=== PATIENT | female | born 1995 | race American Indian/Alaskan Native ===

== ENCOUNTER 2017-11-04 02:13 | Emergency (ER) | payer SELFPAY ==
[2017-11-04] MEDS ORDERED: Ondansetron 4 MG Tab.DIS PO ONE (02:54)
--- NOTE | 2017-11-04 02:56 | EDM.PDOC ---
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 The patient states that she did not "want to kill herself" but that she wanted to go to sleep and to get rid of her mental pain. When challenged she states that she understands this was an overdose but again reiterates that she doesn't think that she wanted to kill herself but that she sometimes will have these erratic behaviors attributable to her anxiety and depression. The patient also has a history of cutting in the past but has not cut in the last several years and states to me that she did have all of her old scars removed and did cut this evening with superficial cuts to her left forearm. The patient tells me her tetanus shot is up-to-date she is not and she has not had any other systemic complaints of fever chills chest pain shortness of breath abdominal pain nausea vomiting or fever. The patient says that she got the prescription for the Celexa from her old physician back in [place] and according to the bottle it was prescribed on March 23 of this year for total number of 30 tablets. She says that in the past she has only taken this when she needs it for sleep and that is why it was prescribed for her. When challenged again about washed extremities evening she states that she is concerned about her well-being and although she does not feel she was to herself now she feels that those thoughts may have been present when she took these pills at midnight and she's concerned that it may happen again as this is in her history. She says that she cut her forearm just to distract her from her "mental pain" and that it was not intent to harm herself. She denies any coingestions and has nausea here but no vomiting. Patient text a friend who felt that she should be evaluated which is why she is here in the department. The patient denies any recent alcohol use and does not use drugs but does smoke cigarettes. Review of systems: As per history of present illness and below otherwise all systems reviewed and negative. Past medical history: As per history of present illness and as reviewed below otherwise noncontributory. Surgical history: As per history of present illness and as reviewed below otherwise noncontributory. Social history: No reported history of drug or alcohol abuse. Family history: As per history of present illness and as reviewed below otherwise noncontributory. Physical exam: Gen.: Well-developed well-nourished female who is nontoxic and speaking clearly and easily in the ED. Vital signs of been reviewed by me It is noted that the patient and conversation has great insight into her prior history of her disease as well as her concerns regarding going forward. She is speaking clearly and easily and is quite open with my direct questioning. HEENT: Atraumatic, normocephalic, pupils reactive, negative for conjunctival pallor or scleral icterus, mucous membranes moist, throat clear, neck supple, nontender, trachea midline. Lungs: Clear to auscultation, breath sounds equal bilaterally, chest nontender. Heart: S1S2, regular rate and rhythm no overt murmurs Abdomen: Soft, nondistended, nontender. Negative for masses or hepatosplenomegaly. NABS Pelvis: Deferred Genitourinary: Deferred. Rectal: Deferred. Extremities: Atraumatic and full range of motion of all extremities with the exception of the volar surface of the left forearm where there are some very superficial multiple horizontal lacerations with some crusted blood and nothing of any depth with no surrounding tenderness erythema and no neurosensory changes in the compartment or distally. The legs are, negative for cords or calf pain. Neurovascular unremarkable. Neuro: Awake, alert, oriented. Cranial nerves II through XII unremarkable. Cerebellum unremarkable. Motor and sensory unremarkable throughout. Exam nonfocal. Diagnostics: CBC CMP Tylenol and aspirin levels alcohol TSH UA UDS urine EKG Therapeutics: [place] Poison control was contacted by nursing regarding this drug ingestion and they recommended an EKG and states that she could have agitation seizures and peak effect is at 4 hours. As this patient had the ingestion 3 hours ago we will continue to monitor into her workup and plan for psychiatric transfer. Patient is been resting comfortably in the ear and exhibits no signs of agitation or distress. We will Continue to monitor There are no available appropriate beds at [facility] in [facility] or [facility] in [place]. [id number]: Case was discussed at length with the psychiatrist, Dr Carrillo, at [facility] in [place], as this is the closest institution that has an available bed. He accepts the patient for transfer. I discussed all these phone conversations and this transfer with the patient and she is still agreeable and wants help. She did initially state that she was unsure about wanting to go to [place] but after further discussion she is agreeable. I performed a repeat EKG just to document that there are no EKG findings at her peak time post ingestion. She currently has been resting comfortably in the ED without any signs of agitation distress anxiety and has been nothing but cooperative here. Impression: Intentional overdose with mood disorder with depressive and anxiety features Definitive disposition and diagnosis as appropriate pending reevaluation and review of above. left hand Pain Score (Numeric/FACES): 6 - Related Data Allergies Allergy/AdvReac Type Severity Reaction Status Date / Time nickel Allergy Rash Verified 11/04/17 02:30 Home Meds: Home Meds Control Pills 1 tab PO DAILY 11/04/17 [History] Citalopram Hydrobromide [Celexa] 10 mg PO DAILY 11/04/17 [History] Past Medical History HEENT History: Reports: None Cardiovascular History: Reports: None Respiratory History: Reports: None Gastrointestinal History: Reports: None Genitourinary History: Reports: None [employer]MENT History: Reports: None Musculoskeletal History: Reports: None Neurological History: Reports: None Psychiatric History: Reports: Anxiety, Depression, Psych Hospitalization(s) Endocrine/Metabolic History: Reports: None Hematologic History: Reports: None Immunologic History: Reports: None Oncologic (Cancer) History: Reports: None Dermatologic History: Reports: None - Infectious Disease History Infectious Disease History: Reports: None - Past Surgical History Head Surgeries/Procedures: Reports: None Social & Family History - Family History Family Medical History: Noncontributory - Tobacco Use Smoking Status *Q: Current Every Day Smoker Years of Tobacco use: 2 Packs/Tins Daily: 0.2 - Caffeine Use Caffeine Use: Reports: Tea - Recreational Drug Use Recreational Drug Use: No ED ROS GENERAL - Review of Systems Review Of Systems: ROS reveals no pertinent complaints other than HPI. ED EXAM, GENERAL - Physical Exam Exam: See Below (See dictation) Course - Vital Signs Last Recorded V/S: Last Vital Signs Temp 36.6 C 11/04/17 04:00 Pulse 68 11/04/17 04:00 Resp 18 11/04/17 04:00 BP 111/71 11/04/17 04:00 Pulse Ox 98 11/04/17 04:00 - Orders/Labs/Meds Orders: Active Orders 24 hr Category Date Time Status Communication Order [RC] STAT Care 11/04/17 02:47 Active EKG Documentation Completion [RC] STAT Care 11/04/17 03:08 Active EKG Documentation Completion [RC] STAT Care 11/04/17 03:08 Inactive Labs: Laboratory Tests 11/04/17 11/04/17 11/04/17 Range/Units 02:54 02:54 03:30 WBC 7.70 (4.0-11.0) K/uL RBC 4.39 (4.30-5.90) M/uL Hgb 13.8 (12.0-16.0) g/dL Hct 42.2 (36.0-46.0) % MCV 96.1 (80.0-98.0) fL MCH 31.4 (27.0-32.0) pg MCHC 32.7 (31.0-37.0) g/dL RDW Std Deviation 46.2 (28.0-62.0) fl RDW Coeff of David 13 (11.0-15.0) % Plt Count 313 (150-400) K/uL MPV 9.50 (7.40-12.00) fL Neut % (Auto) 64.7 (48.0-80.0) % Lymph % (Auto) 28.1 (16.0-40.0) % [place] % (Auto) 6.1 (0.0-15.0) % Eos % (Auto) 1.0 (0.0-7.0) % Baso % (Auto) 0.1 (0.0-1.5) % Neut # (Auto) 5.0 (1.4-5.7) K/uL Lymph # (Auto) 2.2 (0.6-2.4) K/uL [place] # (Auto) 0.5 (0.0-0.8) K/uL Eos # (Auto) 0.1 (0.0-0.7) K/uL Baso # (Auto) 0.0 (0.0-0.1) K/uL Nucleated RBC % 0.0 /100WBC Nucleated RBCs # 0 K/uL Sodium 144 (136-146) mmol/L Potassium 4.0 (3.5-5.1) mmol/L Chloride 112 H (98-110) mmol/L Carbon Dioxide 23 (21-31) mmol/L BUN 12 (6.0-23.0) mg/dL Creatinine 0.8 (0.6-1.5) mg/dL Est Cr Clr Drug Dosing 113.16 mL/min Estimated GFR (MDRD) > 60.0 ml/min Glucose 99 (60-110) mg/dL Calcium 9.0 (8.8-10.8) mg/dL Total Bilirubin 0.2 (0.1-1.5) mg/dL AST 16 (5-40) IU/L ALT 15 (8-54) IU/L Alkaline Phosphatase 38 L (40-150) Total Protein 7.1 (6.0-8.0) g/dL Albumin 4.0 (3.5-5.0) g/dL Globulin 3.1 (2.0-3.5) g/dL Albumin/Globulin Ratio 1.3 (1.3-2.8) TSH 3rd Generation 1.92 (0.47-5.0) uIU/mL Urine Color Urine Appearance Urine pH (5.0-8.0) Ur Specific [place] (1.001-1.035) Urine Protein (NEGATIVE) mg/dL Urine Glucose (UA) (NEGATIVE) mg/dL Urine Ketones (NEGATIVE) mg/dL Urine Occult Blood (NEGATIVE) Urine Nitrite (NEGATIVE) Urine Bilirubin (NEGATIVE) Urine Urobilinogen (<2.0) EU/dL Ur Leukocyte Esterase (NEGATIVE) Urine RBC (0-2/HPF) Urine WBC (0-5/HPF) Ur Epithelial Cells (NONE-FEW) Urine Bacteria (NEGATIVE) Urine HCG, Qual (NEGATIVE) Salicylates < 5.0 (0-20) mg/dL Urine Opiates Screen NEGATIVE (NEGATIVE) Ur Oxycodone Screen NEGATIVE (NEGATIVE) Urine Methadone Screen NEGATIVE (NEGATIVE) Acetaminophen < 3.0 ug/mL Ur Barbiturates Screen NEGATIVE (NEGATIVE) Ur Phencyclidine Scrn NEGATIVE (NEGATIVE) Ur Amphetamine Screen NEGATIVE (NEGATIVE) U Methamphetamines Scrn NEGATIVE (NEGATIVE) U Benzodiazepines Scrn NEGATIVE (NEGATIVE) U Cocaine Metab Screen NEGATIVE (NEGATIVE) U Marijuana (THC) Screen NEGATIVE (NEGATIVE) Ethyl Alcohol 101.8 mg/dL 11/04/17 11/04/17 Range/Units 03:30 03:30 WBC (4.0-11.0) K/uL RBC (4.30-5.90) M/uL Hgb (12.0-16.0) g/dL Hct (36.0-46.0) % MCV (80.0-98.0) fL MCH (27.0-32.0) pg MCHC (31.0-37.0) g/dL RDW Std Deviation (28.0-62.0) fl RDW Coeff of David (11.0-15.0) % Plt Count (150-400) K/uL MPV (7.40-12.00) fL Neut % (Auto) (48.0-80.0) % Lymph % (Auto) (16.0-40.0) % [place] % (Auto) (0.0-15.0) % Eos % (Auto) (0.0-7.0) % Baso % (Auto) (0.0-1.5) % Neut # (Auto) (1.4-5.7) K/uL Lymph # (Auto) (0.6-2.4) K/uL [place] # (Auto) (0.0-0.8) K/uL Eos # (Auto) (0.0-0.7) K/uL Baso # (Auto) (0.0-0.1) K/uL Nucleated RBC % /100WBC Nucleated RBCs # K/uL Sodium (136-146) mmol/L Potassium (3.5-5.1) mmol/L Chloride (98-110) mmol/L Carbon Dioxide (21-31) mmol/L BUN (6.0-23.0) mg/dL Creatinine (0.6-1.5) mg/dL Est Cr Clr Drug Dosing mL/min Estimated GFR (MDRD) ml/min Glucose (60-110) mg/dL Calcium (8.8-10.8) mg/dL Total Bilirubin (0.1-1.5) mg/dL AST (5-40) IU/L ALT (8-54) IU/L Alkaline Phosphatase (40-150) Total Protein (6.0-8.0) g/dL Albumin (3.5-5.0) g/dL Globulin (2.0-3.5) g/dL Albumin/Globulin Ratio (1.3-2.8) TSH 3rd Generation (0.47-5.0) uIU/mL Urine Color YELLOW Urine Appearance HAZY Urine pH 5.5 (5.0-8.0) Ur Specific [place] >= 1.030 (1.001-1.035) Urine Protein NEGATIVE (NEGATIVE) mg/dL Urine Glucose (UA) NEGATIVE (NEGATIVE) mg/dL Urine Ketones NEGATIVE (NEGATIVE) mg/dL Urine Occult Blood LARGE H (NEGATIVE) Urine Nitrite NEGATIVE (NEGATIVE) Urine Bilirubin NEGATIVE (NEGATIVE) Urine Urobilinogen 0.2 (<2.0) EU/dL Ur Leukocyte Esterase NEGATIVE (NEGATIVE) Urine RBC 3-5 (0-2/HPF) Urine WBC 1-2 (0-5/HPF) Ur Epithelial Cells FEW (NONE-FEW) Urine Bacteria FEW (NEGATIVE) Urine HCG, Qual NEGATIVE (NEGATIVE) Salicylates (0-20) mg/dL Urine Opiates Screen (NEGATIVE) Ur Oxycodone Screen (NEGATIVE) Urine Methadone Screen (NEGATIVE) Acetaminophen ug/mL Ur Barbiturates Screen (NEGATIVE) Ur Phencyclidine Scrn (NEGATIVE) Ur Amphetamine Screen (NEGATIVE) U Methamphetamines Scrn (NEGATIVE) U Benzodiazepines Scrn (NEGATIVE) U Cocaine Metab Screen (NEGATIVE) U Marijuana (THC) Screen (NEGATIVE) Ethyl Alcohol mg/dL Meds: Medications Discontinued Medications Generic Name Dose Route Start Last Admin Trade Name Freq PRN Reason Stop Dose Admin Ondansetron HCl 4 mg 11/04/17 02:54 11/04/17 03:02 Zofran Odt PO 11/04/17 02:55 4 mg ONETIME ONE Administration Departure - Departure Time of Disposition: 04:21 Disposition: DC/Tfer to Psych Hosp/Unit 65 Condition: Good Clinical Impression: Intentional overdose of drug in tablet form - Discharge Information Referrals: PCP,None [Primary Care Provider] - Forms: ED Department Discharge - My Orders Last 24 Hours: My Active Orders 11/04/17 02:47 Communication Order [RC] STAT 11/04/17 03:08 EKG Documentation Completion [RC] STAT EKG Documentation Completion [RC] STAT - Assessment/Plan Last 24 Hours: My Active Orders 11/04/17 02:47 Communication Order [RC] STAT 11/04/17 03:08 EKG Documentation Completion [RC] STAT EKG Documentation Completion [RC] STAT
[2017-11-04 03:19] LABS: ACETAMINOPHEN < 3.0 ug/mL; CHLORIDE,CL 112 mmol/L (98-110); SODIUM,NA 144 mmol/L (136-146)
== END 2017-11-04 09:07 ==
LOC: MW.ED 02:13
DX: T43.222A Poisoning by selective serotonin reuptake inhibitors, intentional self-harm, initial encounter (principal); S51.812A Laceration without foreign body of left forearm, initial encounter; F41.9 Anxiety disorder, unspecified; F32.9 Major depressive disorder, single episode, unspecified; F17.210 Nicotine dependence, cigarettes, uncomplicated; Z79.899 Other long term (current) drug therapy; X78.9XXA Intentional self-harm by unspecified sharp object, initial encounter
CPT/HCPCS: 36415; 80053; 80305; 81001; 81025; 84443; 85025; 93005; 99285; A9270; G0480

== ENCOUNTER 2018-08-02 23:10 | Emergency (ER) | payer OTHER ==
[2018-08-02] MEDS ORDERED: Acetaminophen/HYDROcodone 325-10 MG Tab PO ONE (23:21)
[2018-08-02] MEDS ORDERED: Ketorolac 60 MG/2 ML SDV IM ONE (23:21)
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
== END 2018-08-02 23:50 | disposition home or self-care (01) ==
LOC: MW.ED 23:10
DX: H73.23 Unspecified myringitis, bilateral (principal); F41.9 Anxiety disorder, unspecified; F32.9 Major depressive disorder, single episode, unspecified; Z79.899 Other long term (current) drug therapy; W13.1XXA Fall from, out of or through bridge, initial encounter
CPT/HCPCS: 96372; 99282; A9270; J1885

== ENCOUNTER 2022-01-19 19:34 | Emergency (ER) | payer OTHER ==
[2022-01-19] MEDS ORDERED: Sodium Chloride 0.9% 1,000 ML IV ONE (20:15)
[2022-01-19] MEDS ORDERED: Ondansetron 4 MG/2 ML SDV IVPUSH ONE (20:15)
[2022-01-19] MEDS ORDERED: Morphine 4 MG/ML VIAL IVPUSH ONE (20:16)
[2022-01-19 21:06] LABS: BLOOD UREA NITROGEN,BUN 15 mg/dL (7.0-18.0); CHLORIDE,CL 103 mmol/L (98-107); GLUCOSE RANDOM 104 mg/dL (74-106); LIPASE 114 U/L (73-393); POTASSIUM,K 3.9 mmol/L (3.5-5.1); SODIUM,NA 139 mmol/L (136-145)
[2022-01-19] MEDS ORDERED: Iopamidol 755 MG/ML 500 ML Multipack Bottle IVPUSH ONE (21:17)
[2022-01-19] MEDS ORDERED: Promethazine 25 MG/ML SDV IM ONE (22:27)
== END 2022-01-19 23:43 | disposition home or self-care (01) ==
LOC: MW.ED 19:34
DX: R10.33 Periumbilical pain (principal); G89.29 Other chronic pain; Z91.048 Other nonmedicinal substance allergy status; Z20.822 Contact with and (suspected) exposure to COVID-19
CPT/HCPCS: 36415; 74177; 80053; 81003; 81025; 83690; 85025; 87635; 96372; 96374; 96375; 99284; J2270; J2405; J2550; J7030; Q9967; U0002

== ENCOUNTER 2023-03-01 11:33 | Emergency (ER) | payer OTHER | END 2023-03-01 12:45 | disposition home or self-care (01) | LOC: MW.ED 11:33 | DX: J35.8 Other chronic diseases of tonsils and adenoids (principal) | CPT/HCPCS: 36415; 86308; 99283 ==

== ENCOUNTER 2024-01-19 08:11 | Emergency (ER) | payer SELFPAY ==
[2024-01-19] MEDS: Sodium Chloride 0.9% 1,000 ML IV ONE ×2 (08:56→10:10)
[2024-01-19] MEDS: Prochlorperazine 10 MG/2 ML SDV IVPUSH ONE ×2 (08:57→10:09)
[2024-01-19] MEDS: Sodium Chloride 0.9% 10 ML Syringe FLUSH PRN (08:57)
[2024-01-19] MEDS: Sodium Chloride 0.9% 2.5 ML Syringe FLUSH PRN (08:57)
[2024-01-19 08:58] LABS: BASOPHILS ABSOLUTE AUTO 0.04 K/uL (0.00-0.20); BASOPHILS PERCENT AUTO 0.2 % (0.0-1.0); EOSINOPHILS ABSOLUTE AUTO 0.18 K/uL (0.00-0.45); HEMATOCRIT 44.3 % (37.0-47.0); HEMOGLOBIN 14.8 g/dL (12.0-16.0); IMMATURE GRAN PERCENT AUTO 0.6 % (0.0-0.4); LYMPHOCYTES ABSOLUTE AUTO 1.31 K/uL (1.00-4.80); LYMPHOCYTES PERCENT AUTO 7.5 % (24.0-44.0); MEAN CORPUSCULAR HEMOGLOBIN 31.8 pg (28.0-32.0); MEAN CORPUSCULAR HGB CONC 33.4 g/dL (32.0-36.0); MEAN CORPUSCULAR VOLUME 95.1 fL (83.0-99.0); MEAN PLATELET VOLUME 8.7 fL (9.4-12.3); MONOCYTES ABSOLUTE AUTO 0.83 K/uL (0.00-0.80); MONOCYTES PERCENT AUTO 4.8 % (0.0-8.0); NEUTROPHILS ABSOLUTE AUTO 15.01 K/uL (1.80-7.70); NEUTROPHILS PERCENT AUTO 85.9 % (41.0-71.0); PLATELET COUNT,PLT 334 K/uL (150-400); RED BLOOD CELL COUNT 4.66 M/uL (4.10-5.30); WHITE BLOOD CELL COUNT,WBC 17.47 K/uL (3.9-11.3)
[2024-01-19 09:18] LABS: CORONAVIRUS COVID-19 NAA NEGATIVE (NEGATIVE); INFLUENZA A NAA NEGATIVE (NEGATIVE); INFLUENZA B NAA NEGATIVE (NEGATIVE)
[2024-01-19 09:23] LABS: A/G RATIO 1.1 (0.9-1.6); ALBUMIN 3.8 g/dL (3.4-5.0); BILIRUBIN TOTAL 0.6 mg/dL (0.2-1.0); CALCIUM 9.1 mg/dL (8.5-10.1); CARBON DIOXIDE,CO2 22.9 mmol/L (21.0-32.0); EST CRCL DRUG DOSING (CG) 89.09 mL/min; MAGNESIUM 1.7 mg/dL (1.8-2.4); POTASSIUM,K 4.1 mmol/L (3.5-5.1); PROTEIN TOTAL,TP 7.4 g/dL (6.4-8.2)
[2024-01-19] MEDS ORDERED: Morphine 2 MG/ML SYRINGE IVPUSH PRN (09:41)
[2024-01-19] MEDS ORDERED: Naloxone 0.4 MG/ML SDV IVPUSH PRN (09:41)
[2024-01-19] MEDS: Pantoprazole 40 MG in Sodium Chloride 0.9% 10 ML IVPUSH ONE (10:10)
[2024-01-19 11:16] LABS: APPEARANCE,URINE CLEAR; BILIRUBIN,URINE NEGATIVE (NEGATIVE); COLOR,URINE YELLOW; GLUCOSE,URINE NEGATIVE (NEGATIVE); KETONES,URINE NEGATIVE (NEGATIVE); LEUKOCYTE ESTERASE,URINE NEGATIVE (NEGATIVE); NITRITE,URINE NEGATIVE (NEGATIVE); OCCULT BLOOD,URINE TRACE-INTACT (NEGATIVE); PROTEIN,URINE NEGATIVE (NEGATIVE); UROBILINOGEN,URINE 0.2 EU/dL (<2.0)
[2024-01-19 11:44] LABS: BACTERIA,URINE 1+ (NEGATIVE); EPITHELIAL CELLS,URINE FEW (NONE-FEW); RBC,URINE NONE SEEN (0-2/HPF); WBC,URINE 0-2 (0-5/HPF)
[2024-01-19 11:45] LABS: MUCUS,URINE LIGHT (NONE-MOD)
== END 2024-01-19 12:05 | disposition home or self-care (01) ==
LOC: MW.ED 08:11
DX: K52.9 Noninfective gastroenteritis and colitis, unspecified (principal); D72.829 Elevated white blood cell count, unspecified; R10.33 Periumbilical pain; Z91.048 Other nonmedicinal substance allergy status
CPT/HCPCS: 0240U; 36415; 80053; 81001; 81025; 83690; 83735; 85025; 96361; 96374; 96375; 96376; 99284; C9113; J0780; J3490; J7030

== ENCOUNTER 2024-09-15 16:34 | Emergency (ER) | payer SELFPAY ==
[2024-09-15] MEDS: Tetracaine HCl/PF 0.5% 4 ML Bottle EYEBOTH STA (18:42)
[2024-09-15] MEDS: Ciprofloxacin 0.3% Ophth Soln 2.5 ML Bottle EYEBOTH STA (19:42)
== END 2024-09-15 19:47 | disposition home or self-care (01) ==
LOC: MW.ED 16:34
DX: S05.02XA Injury of conjunctiva and corneal abrasion without foreign body, left eye, initial encounter (principal); H11.33 Conjunctival hemorrhage, bilateral; F17.210 Nicotine dependence, cigarettes, uncomplicated; Z79.899 Other long term (current) drug therapy; Z91.048 Other nonmedicinal substance allergy status; Y77.11 Contact lens associated with adverse incidents; Z75.8 Other problems related to medical facilities and other health care
CPT/HCPCS: 99283; A9270; J3490

== ENCOUNTER 2025-05-16 17:35 | Emergency (ER) | payer SELFPAY | END 2025-05-16 18:29 | disposition home or self-care (01) | LOC: MW.ED 17:35 | DX: F41.8 Other specified anxiety disorders (principal); R03.0 Elevated blood-pressure reading, without diagnosis of hypertension; Z76.0 Encounter for issue of repeat prescription; F17.200 Nicotine dependence, unspecified, uncomplicated; Z91.048 Other nonmedicinal substance allergy status | CPT/HCPCS: 99281; 99282 ==